=== PATIENT | female | born 1950 | race Two or more races ===

== ENCOUNTER 2024-07-05 06:24 | Day surgery (SDC) | payer OTHER, SELFPAY ==
[2024-07-05 07:48] VITALS: BMI 27.3
[2024-07-05 07:49] VITALS: BP 133/52
[2024-07-05 08:04] LABS: Glucose - Point of Care 98 mg/dl (70-99)
[2024-07-05 10:04] VITALS: BP 114/58
[2024-07-05 10:10] LABS: Glucose - Point of Care 81 mg/dl (70-99)
[2024-07-05 10:15] VITALS: BP 88/74
[2024-07-05 10:17] VITALS: BP 116/74
[2024-07-05 10:30] VITALS: BP 120/49
== END 2024-07-05 10:45 | disposition home or self-care (01) ==
LOC: GI 06:24
PROVIDERS: ATTENDING PHYSICIAN Internal Medicine Gastroenterology
DX: K29.70 Gastritis, unspecified, without bleeding (principal); C49.A2 Gastrointestinal stromal tumor of stomach; K31.89 Other diseases of stomach and duodenum; K25.9 Gastric ulcer, unspecified as acute or chronic, without hemorrhage or perforation
CPT/HCPCS: 43237; 43239; 88305; 82962; 88342